=== PATIENT | female | born 1995 | race Caucasian/White ===

== ENCOUNTER 2019-01-03 15:36 | Emergency (ER) | payer BC ==
[~2019-01-03] VITALS: Ht 170.2 cm; Wt 84.1 kg
[2019-01-03 15:43] VITALS: BP 120/74; TEMP 98
[2019-01-03] MEDS ORDERED: NORCO 325 MG-51 TAB PO (17:03)
[2019-01-03] MEDS ORDERED: CRUTCHES MC (17:09)
[2019-01-03 17:26] VITALS: PULSE 109
== END 2019-01-03 17:26 | disposition home or self-care (01) ==
LOC: COL.ER 15:36
DX: S82.301A Unspecified fracture of lower end of right tibia, initial encounter for closed fracture (principal); E10.9 Type 1 diabetes mellitus without complications; W13.8XXA Fall from, out of or through other building or structure, initial encounter; Y92.830 Public park as the place of occurrence of the external cause
CPT/HCPCS: J3010; J7030; Q4045